=== PATIENT | female | born 1995 | race Caucasian/White ===

== ENCOUNTER → 2017-02-02 | Day surgery (SDC) | payer OTHER ==
[~2017-02-02] VITALS: Ht 152.4 cm; Wt 70.8 kg
[~2017-02-02] MED LIST: ALYACEN 1-35-21 EACH PO
[2017-02-02 09:46] LABS: ABSOLUTE BASOPHIL COUNT 0 /CUMM (0.0-0.2); ABSOLUTE EOSINOPHIL COUNT 0.2 /CUMM (0.0-0.7); ABSOLUTE GRANULOCYTE CT 4.5 /CUMM (1.4-6.5); ABSOLUTE MONOCYTE COUNT 0.2 /CUMM (0.10-0.60); BASOPHIL % 0.5 % (0.0-2.0); EOSINOPHIL % 3.1 % (0-5); GRANULOCYTE % 64.5 % (42.2-75.2); HEMATOCRIT 36.1 % (37-47); MEAN CORPUSCULAR HGB 30.7 PG (27.0-31.0); MEAN CORPUSCULAR HGB CONC 34.5 G/DL (33.0-37.0); MEAN PLATELET VOLUME 9.1 FL (7.4-10.4); PLATELET COUNT 264 /CUMM (130-400); RBC DISTRIBUTION WIDTH 11.8 % (11.5-14.5); RED BLOOD CELL CT 4.06 /CUMM (4.20-5.40)
--- NOTE | 2017-02-02 09:50 | ED GI/GU/ABDOMINAL COMPLAINT ---
History of Present Illness General Chief Complaint: Abdominal Pain/Flank Pain Stated Complaint: RT SIDE ABDOMINAL PAIN Source: patient Exam Limitations: no limitations Vital Signs & Intake/Output Vital Signs & Intake/Output Vital Signs Date Time Temp Pulse Resp B/P B/P Pulse O2 O2 Flow FiO2 Mean Ox Delivery Rate 02/02 1122 98.7 02/02 0910 98.7 81 15 151/74 99 Room Air Room Air Allergies Coded Allergies: No Known Allergies (02/02/17) Reconcile Medications Norethindrone-Ethinyl Estrad (Alyacen 1-35-28 Tablet) 1 MG-35 MCG TABLET 1 TAB PO DAILY ORAL CONTRACEPTIVE (Reported) Triage Note: PT TO ED WITH RLQ PAIN AND PERIUMBILICAL PAIN THAT STARTED TWO DAYS AGO. +VOMIT X 1 TIME TODAY. DIZZINESS THIS MORNING. DIARRHEA YESTERDAY. REPORTS THROBBING PAIN AFTER URINATING. Triage Nurses Notes Reviewed? yes ? N Is pt currently ? No HPI: Patient is a 21-year-old female presents complaining of right lower quadrant abdominal pain. Patient reports pain onset 2 days ago, began periumbilically. This morning pain is now radiating to the right lower quadrant. Pain is a sharp and throbbing pain that comes in waves. Pain is currently moderate to severe. Patient has been taking ibuprofen with no improvement. Decreased appetite and associated nausea. Patient had one episode of vomiting this morning. Last bowel movement was yesterday morning and watery. Urinary frequency. Last menstrual period was approximately 2 weeks ago and normal. Patient denies fevers, chills, dysuria, hematuria. Past History Travel History Traveled to [place] past 21 day No Medical History Any Pertinent Medical History? 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 No Review of Systems Review of Systems Constitutional: Denies: chills, fever. EENTM: Reports: no symptoms. Respiratory: Denies: cough, short of breath. Cardiovascular: Denies: chest pain. GI: Reports: see HPI. Genitourinary: Reports: frequency. Denies: dysuria. Musculoskeletal: Denies: back pain. Skin: Reports: no symptoms. Neurological/Psychological: Reports: no symptoms. Hematologic/Endocrine: Reports: no symptoms. Immunologic/Allergic: Reports: no symptoms. Physical Exam Physical Exam General Appearance: well developed/nourished, alert, awake Head: atraumatic, normal appearance Eyes: Bilateral: normal appearance, PERRL, EOMI. Ears, Nose, Throat, Mouth: hearing grossly normal, moist mucous membrane Neck: normal inspection, supple, full range of motion Respiratory: normal breath sounds, chest non-tender, no respiratory distress, lungs clear Cardiovascular: regular rate/rhythm Gastrointestinal: normal bowel sounds, soft, positive mcburney's point tenderness, positive rovsing's sign Back: normal inspection, normal range of motion, no cva tenderness Extremities: normal range of motion Neurologic/Psych: no motor/sensory deficits, awake, alert, oriented x 3, normal gait, normal mood/affect Skin: intact, normal color, warm/dry Core Measures ACS in differential dx? No Severe Sepsis Present: No Septic Shock Present: No Progress Differential Diagnosis: appendicitis, cholecystitis, diverticulitis, ectopic , endometritis, gastritis, hepatitis, hernia, ischemic bowel, inflamm bowel dis, kidney stone, ovarian cyst, ovarian torsion, perforated viscous, UTI/ pyelo Plan of Care: Orders Procedure Date/time Status Nothing by Mouth 02/02 D Active Patient Data 02/02 1219 Active Code Status 02/02 1219 Active URINE 02/02 09 Complete URINALYSIS 02/02 09 Complete COMPREHENSIVE METABOLIC PANEL 02/02 09 Complete CBC WITHOUT DIFFERENTIAL 02/02 918 Complete VTE Mechanical Prophylaxis 02/02 UNK Active Vital Signs 02/02 UNK Active Intake & Output 02/02 UNK Active Current Medications Sig/Ananda Start time Last Medication Dose Stop Time Status Admin Acetaminophen 1,000 MG Q6P PRN 02/02 1830 UNVr (Ofirmev) N/A 1 UNIT (No Carrier) Heparin Sodium 5,000 UNIT Q8 02/02 1400 UNVr (Porcine) Dextrose/Sodium 1,000 ML Q10H 02/02 1230 UNVr Chloride (D5W-1/2 Normal Saline 1000ML) Morphine Sulfate 4 MG Q3P PRN 02/02 1230 AC (Morphine) Ondansetron HCl 4 MG Q6P PRN 02/02 1230 AC (Zofran) Ampicillin Sodium/ 3,000 MG Q6H 02/02 1215 UNVr Sulbactam Sodium (Unasyn) Sodium Chloride 100 ML (Normal Saline 0.9%) Laboratory Tests 02/02/17 0948: Urinalysis LIGHT H, Urine Color YEL, Urine Clarity HAZY H, Urine pH 6.0, Ur Specific [place] >= 1.030, Urine Protein NEG, Urine Ketones NEG, Urine Nitrite NEG, Urine Bilirubin NEG, Urine Urobilinogen 0.2, Ur Leukocyte Esterase NEG, Ur Microscopic SEDIMENT EXAMINED, Urine RBC 1-3, Urine WBC 1-3 H, Ur Epithelial Cells MANY H, Urine Bacteria MOD H, Urine Mucus FEW, Urine Hemoglobin TRACE- LYSED, Urine Glucose NEG, Urine Test NEGATIVE 02/02/17 0931: Anion Gap 12, Estimated GFR > 60, BUN/Creatinine Ratio 21.4, Glucose 96, Calcium 9.2, Total Bilirubin 0.4, AST 36, ALT 45, Alkaline Phosphatase 73, Total Protein 7.3, Albumin 4.3, Globulin 3.0, Albumin/Globulin Ratio 1.4, CBC w Diff NO MAN DIFF REQ, RBC 4.06 L, MCV 89.0, MCH 30.7, RDW 11.8, MPV 9.1, Gran % 64.5, Lymphocytes % 28.6, Monocytes % 3.3, Eosinophils % 3.1, Basophils % 0.5, Absolute Granulocytes 4.5, Absolute Lymphocytes 2.0, Absolute Monocytes 0.2, Absolute Eosinophils 0.2, Absolute Basophils 0, PUBS MCHC 34.5 Patient declined pain medication on initial exam. 1110: Results discussed with patient. Discussed with Dr. Garcia: have surgical pa come to evaluate patient. 1230: Patient evaluated by surgical physician imaging assistant: Plan for patient to the operating room today for appendectomy. (ANNALISA ROSS,ZEYNEP) Diagnostic Imaging: Viewed by Me: CT Scan. Discussed w/RAD: CT Scan. Radiology Impression: PATIENT: JEREMY RAMIREZ PRESENT AGE: 21 PATIENT ACCOUNT NO: [id number] : 95 LOCATION: [facility] ORDERING PHYSICIAN: ZEYNEP ROSS SERVICE DATE: 02/02/17 EXAM TYPE: CAT - CT ABD & PELVIS W IV CONTRAST EXAMINATION: CT ABDOMEN AND PELVIS WITH CONTRAST CLINICAL INFORMATION: 21-year-old female with periumbilical pain x2 days now radiating to right lower quadrant. Evaluate for appendicitis. COMPARISON: None TECHNIQUE: Multidetector volumetric imaging was performed of the abdomen and pelvis before and after the IV administration of 95 mL of Optiray 320 intravenous contrast. Sagittal and coronal reformatted images were obtained on the technologist's workstation. DLP: 303.22 mGy-cm FINDINGS: LUNG BASES: The visualized lung bases are unremarkable. LIVER, GALLBLADDER, AND BILIARY TREE: The liver is normal in size and shape. Liver demonstrates decreased attenuation suggesting underlying hepatic steatosis. No focal hepatic lesion or biliary ductal dilatation is present. The gallbladder is unremarkable with no evidence of radiopaque gallstones, gallbladder wall thickening, or obvious pericholecystic inflammatory changes. PANCREAS: Unremarkable. SPLEEN: Unremarkable. ADRENAL GLANDS: Unremarkable. KIDNEYS AND URETERS: The kidneys are normal in size, shape, and attenuation. No hydronephrosis, hydroureter, or calculi seen. No perinephric stranding. BLADDER: Decompressed. GASTROINTESTINAL TRACT: There is no bowel obstruction, free intraperitoneal air or fluid. The appendix is mildly prominent measuring 7 mm. No definite periappendiceal inflammatory changes are identified. Moderate stool seen throughout the colon. ABDOMINAL WALL: No significant hernia is appreciated. LYMPH NODES: No mesenteric , retroperitoneal or pelvic lymphadenopathy. VASCULAR: Nonaneurysmal abdominal aorta. Patent portal veins. PELVIC VISCERA: Uterus is retroverted. No adnexal mass. No significant pelvic free fluid. OSSEOUS STRUCTURES: No acute osseous abnormality. IMPRESSION: 1. Appendix is slightly prominent measuring 7 mm, however, no definite periappendiceal inflammatory changes are identified. The findings may represent early appendicitis in the appropriate clinical setting. 2. Probable hepatic steatosis. DICTATED BY: CHRISTIANA MORA DO DATE/TIME DICTATED:02/02/171036 PROCESSING SUPERVISOR:YUMIKO DATE/TIME TRANSCRIBED:1036 CONFIDENTIAL, DO NOT COPY WITHOUT APPROPRIATE AUTHORIZATION. < Electronically signed in Other Vendor System> SIGNED BY: CHRISTIANA MORA DO 02/02/17 1050 Initial ED EKG: none Departure Departure Time of Disposition: 1231 Disposition: STILL A PATIENT Condition: Stable Clinical Impression Primary Impression: Acute appendicitis Qualifiers: Acute appendicitis type: with localized peritonitis Qualified Code: K35.3 - Acute appendicitis with localized peritonitis Referrals: MAL MONTERROSO,NELDA MCCALL (PCP/Family) Departure Forms: Customer Survey General Discharge Information Observation Note Spoke With: GASTON GARCIA MD OR/GI Note Spoke With: GASTON GARCIA MD ED Treatment Decision: JEREMY RAMIREZ requires urgent operative management or an emergent procedure that cannot be performed in the Emergency Room setting. Transport To: [facility]
--- NOTE | 2017-02-02 10:50 | CT SCAN REPORT ---
EXAMINATION: CT ABDOMEN AND PELVIS WITH CONTRAST CLINICAL INFORMATION: 21-year-old female with periumbilical pain x2 days now radiating to right lower quadrant. Evaluate for appendicitis. COMPARISON: None TECHNIQUE: Multidetector volumetric imaging was performed of the abdomen and pelvis before and after the IV administration of 95 mL of Optiray 320 intravenous contrast. Sagittal and coronal reformatted images were obtained on the technologist's workstation. DLP: 303.22 mGy-cm FINDINGS: LUNG BASES: The visualized lung bases are unremarkable. LIVER, GALLBLADDER, AND BILIARY TREE: The liver is normal in size and shape. Liver demonstrates decreased attenuation suggesting underlying hepatic steatosis. No focal hepatic lesion or biliary ductal dilatation is present. The gallbladder is unremarkable with no evidence of radiopaque gallstones, gallbladder wall thickening, or obvious pericholecystic inflammatory changes. PANCREAS: Unremarkable. SPLEEN: Unremarkable. ADRENAL GLANDS: Unremarkable. KIDNEYS AND URETERS: The kidneys are normal in size, shape, and attenuation. No hydronephrosis, hydroureter, or calculi seen. No perinephric stranding. BLADDER: Decompressed. GASTROINTESTINAL TRACT: There is no bowel obstruction, free intraperitoneal air or fluid. The appendix is mildly prominent measuring 7 mm. No definite periappendiceal inflammatory changes are identified. Moderate stool seen throughout the colon. ABDOMINAL WALL: No significant hernia is appreciated. LYMPH NODES: No mesenteric, retroperitoneal or pelvic lymphadenopathy. VASCULAR: Nonaneurysmal abdominal aorta. Patent portal veins. PELVIC VISCERA: Uterus is retroverted. No adnexal mass. No significant pelvic free fluid. OSSEOUS STRUCTURES: No acute osseous abnormality. IMPRESSION: 1. Appendix is slightly prominent measuring 7 mm, however, no definite periappendiceal inflammatory changes are identified. The findings may represent early appendicitis in the appropriate clinical setting. 2. Probable hepatic steatosis.
--- NOTE | 2017-02-02 12:34 | History & Physical Pre-Op ---
General Information and HPI MD Statement: I have seen and personally examined JEREMY RAMIREZ and documented this H&P. The patient is a 21 year old F who presented with a patient stated chief complaint of abdominal pain. Source of Information: patient Exam Limitations: no limitations History of Present Illness: Pt is a 21 yo, otherwise healthy female, who presented to the ED with complaints of acute onset of progressively worsening abdominal pain x 2 days. Pt states that she was in her usual state of good health until 2 days ago, when she started to experience periumbilical, "throbbing" abdominal pain with associated nausea. She reports 2 episodes of diarrhea and decreased appetite as her symptoms progressed with eventual emesis early this morning. Pain is worse with sitting or walking. It decreases during standing or laying flat. She currently rates it 7 out of 10. No relief with Midol taken at home. She reports minimal relief with IV acetaminophen here in the ED. She has a history of a left ovarian cyst, but has never had pain like this before. Last bowel movement was yesterday morning. Last menstrual period was 2 weeks ago. She ate a small meal last night and had water to drink this morning. She denies recent history of unusual food intake or traveling. Also denies fever, chills, sweating, headache , dizziness, chest pain, shortness of breath, palpitations, cough, constipation, hematemesis, hematochezia, dysuria, oliguria. 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 Home Who Do You Live With? parent Smoking Status: Never Smoked ETOH Use: occasional use Illicit Drug Use: denies illicit drug use Employment History Employment: Employed Review of Systems Review of Systems: Positive for abdominal pain, nausea, vomiting, diarrhea, anorexia. Negative for fever, chills, sweating, headache, dizziness, chest pain, shortness of breath, palpitations, cough, constipation, hematemesis, hematochezia, dysuria , oliguria. Exam & Diagnostic Data Last 24 Hrs of Vital Signs/I&O Vital Signs Date Time Temp Pulse Resp B/P B/P Pulse O2 O2 Flow FiO2 Mean Ox Delivery Rate 02/02 1122 98.7 02/02 0910 98.7 81 15 151/74 99 Room Air Room Air Intake & Output 02/02 1600 02/02 0800 02/02 0000 Intake Total Output Total Balance Patient 156 lb Weight Weight Reported by Patient Measurement Method Physical Exam: Gen.: Patient is awake and alert. No acute distress. She was examined in the hallway, which somewhat limited the exam. Cardiac: Regular rate and rhythm. No murmurs appreciated. Pulmonary: Lungs are clear bilaterally. Abdomen: Nondistended. There is tenderness to light palpation in the right lower quadrant over McBurney's point. Positive guarding and rebound tenderness. Positive obturator sign. Negative psoas sign. No masses or abdominal wall defects are appreciated. Hypoactive bowel sounds were heard. Last 24 Hrs of Labs/Lg: Laboratory Tests 02/02/17 0948: Urinalysis LIGHT H, Urine Color YEL, Urine Clarity HAZY H, Urine pH 6.0, Ur Specific [place] >= 1.030, Urine Protein NEG, Urine Ketones NEG, Urine Nitrite NEG, Urine Bilirubin NEG, Urine Urobilinogen 0.2, Ur Leukocyte Esterase NEG, Ur Microscopic SEDIMENT EXAMINED, Urine RBC 1-3, Urine WBC 1-3 H, Ur Epithelial Cells MANY H, Urine Bacteria MOD H, Urine Mucus FEW, Urine Hemoglobin TRACE- LYSED, Urine Glucose NEG, Urine Test NEGATIVE 02/02/17 0931: Anion Gap 12, Estimated GFR > 60, BUN/Creatinine Ratio 21.4, Glucose 96, Calcium 9.2, Total Bilirubin 0.4, AST 36, ALT 45, Alkaline Phosphatase 73, Total Protein 7.3, Albumin 4.3, Globulin 3.0, Albumin/Globulin Ratio 1.4, CBC w Diff NO MAN DIFF REQ, RBC 4.06 L, MCV 89.0, MCH 30.7, RDW 11.8, MPV 9.1, Gran % 64.5, Lymphocytes % 28.6, Monocytes % 3.3, Eosinophils % 3.1, Basophils % 0.5, Absolute Granulocytes 4.5, Absolute Lymphocytes 2.0, Absolute Monocytes 0.2, Absolute Eosinophils 0.2, Absolute Basophils 0, PUBS MCHC 34.5 Diagnostic Data Other Results CT scan of abdomen and pelvis revealed: 1. Appendix is slightly prominent measuring 7 mm, however, no definite periappendiceal inflammatory changes are identified. The findings may represent early appendicitis in the appropriate clinical setting. 2. Probable hepatic steatosis. Assessment/Plan Assessment/Plan: Patient is a 21-year-old female, otherwise healthy, who presents with signs, symptoms, and radiologic evidence of early acute appendicitis. Although the CT scan is not definitive and patient is afebrile with a normal white blood cell count, she otherwise displays a perfect picture clinically for appendicitis. Plan: -Laparoscopic appendectomy is recommended. Patient is in agreement. -Patient will likely be admitted (obs) to the general medical floor (as this does not need to be done emergently since she is stable), under Dr. Garcia's service, while she awaits surgery. -Nothing by mouth, IV fluids. -IV Unasyn every 6 hours. -Morphine or IV Tylenol as needed for pain control. -Zofran as needed for nausea. -Subcutaneous heparin and Alps for DVT prophylaxis. -This was discussed with Dr. Garcia and the patient, all are in agreement. As Ranked By This Provider Problem List: 1. Acute appendicitis
--- NOTE | 2017-02-02 12:34 | Admission Core Measures ---
Admission Lab Results I reviewed the following labs: Laboratory Tests 02/02 02/02 0991 0922 Chemistry Sodium (137 - 145 mmol/L) 140 Potassium (3.5 - 5.1 mmol/L) 4.1 Chloride (98 - 107 mmol/L) 104 Carbon Dioxide (22 - 30 mmol/L) 24 Anion Gap (5 - 16) 12 BUN (7 - 17 mg/dL) 15 Creatinine (0.5 - 1.0 mg/dL) 0.7 Estimated GFR (>60 ml/min) > 60 BUN/Creatinine Ratio (7 - 25 %) 21.4 Glucose (65 - 99 mg/dL) 96 Calcium (8.4 - 10.2 mg/dL) 9.2 Total Bilirubin (0.2 - 1.3 mg/dL) 0.4 AST (14 - 36 U/L) 36 ALT (9 - 52 U/L) 45 Alkaline Phosphatase (<127 U/L) 73 Total Protein (6.3 - 8.2 g/dL) 7.3 Albumin (3.5 - 5.0 g/dL) 4.3 Globulin (1.9 - 4.2 gm/dL) 3.0 Albumin/Globulin Ratio (1.1 - 2.2 %) 1.4 Hematology CBC w Diff NO MAN DIFF REQ WBC (4.8 - 10.8 /CUMM) 7.0 RBC (4.20 - 5.40 /CUMM) 4.06 L Hgb (12.0 - 16.0 G/DL) 12.5 Hct (37 - 47 %) 36.1 L MCV (81.0 - 99.0 FL) 89.0 MCH (27.0 - 31.0 PG) 30.7 RDW (11.5 - 14.5 %) 11.8 Plt Count (130 - 400 /CUMM) 264 MPV (7.4 - 10.4 FL) 9.1 Gran % (42.2 - 75.2 %) 64.5 Lymphocytes % (20.5 - 51.1 %) 28.6 Monocytes % (1.7 - 9.3 %) 3.3 Eosinophils % (0 - 5 %) 3.1 Basophils % (0.0 - 2.0 %) 0.5 Absolute Granulocytes (1.4 - 6.5 /CUMM) 4.5 Absolute Lymphocytes (1.2 - 3.4 /CUMM) 2.0 Absolute Monocytes (0.10 - 0.60 /CUMM) 0.2 Absolute Eosinophils (0.0 - 0.7 /CUMM) 0.2 Absolute Basophils (0.0 - 0.2 /CUMM) 0 PUBS MCHC (33.0 - 37.0 G/DL) 34.5 Urines Urinalysis LIGHT H Urine Color (YEL,AMB,STR) YEL Urine Clarity (CLEAR) HAZY H Urine pH (5.0 - 8.0) 6.0 Ur Specific [place] (1.001 - 1.035) >= 1.030 Urine Protein (NEG,<30 MG/DL) NEG Urine Ketones (NEG) NEG Urine Nitrite (NEG) NEG Urine Bilirubin (NEG) NEG Urine Urobilinogen (0.1 - 1.0 EU/dl) 0.2 Ur Leukocyte Esterase (NEG) NEG Ur Microscopic SEDIMENT EXAMINED Urine RBC (0 - 5 /HPF) 1-3 Urine WBC (0 - 2 /HPF) 1-3 H Ur Epithelial Cells (NONE,FEW) MANY H Urine Bacteria (NEG/NONE) MOD H Urine Mucus (FEW,NONE) FEW Urine Hemoglobin (NEG) TRACE-LYSED Urine Glucose (N MG/DL) NEG Urine Test NEGATIVE Admission Meds I reviewed the following Meds: Current Medications Sig/Ananda Start time Last Medication Dose Stop Time Status Admin Acetaminophen 1,000 MG Q6P PRN 02/02 1830 UNVr (Ofirmev) N/A 1 UNIT (No Carrier) Ampicillin Sodium/ 3,000 MG Q6H 02/02 1215 UNVr Sulbactam Sodium (Unasyn) Sodium Chloride 100 ML (Normal Saline 0.9%) Dextrose/Sodium 1,000 ML Q10H 02/02 1230 UNVr Chloride (D5W-1/2 Normal Saline 1000ML) Heparin Sodium 5,000 UNIT Q8 02/02 1400 UNVr (Porcine) Morphine Sulfate 4 MG Q3P PRN 02/02 1230 AC (Morphine) Ondansetron HCl 4 MG Q6P PRN 02/02 1230 AC (Zofran) Acute Coronary Syndrome Inclusion Criteria ACS Diagnosis No Inpatient Core Measures LDL Reminder: If No, please order W/I first 24hr of stay Congestive Heart Failure Inclusion Criteria CHF Diagnosis No Cerebrovascular accident Inclusion Criteria CVA/TIA Diagnosis No Inpatient Core Measures Bedside Swallow Eval Reminder: If BSE failed, place ST order Antithrombotic Reminder: Order Antithrombotic Medication by end of day 2 Antithrombotic Reminder: Document Reason Antithrombotic Not ordered by end of day 2 AFIB/Flutter Reminder: If Present, add to problem list AFIB/Flutter Reminder: Order Anticoag Medication for pts with AFIB/Flutter Atherosclerosis Reminder: If Present, add to problem list LDL Reminder: If No, please order W/I first 24hr of stay PT Order Reminder: If No, please order Venous thromboembolism Inpatient Core Measures VTE Risk Factors: Acute medical illness, [facility] prophylaxis d/t No contraindications No VTE Pharm Prophylaxis d/t No contraindications Inclusion Criteria - Per Current guidelines, there needs to be overlap - treatment for the first 5 days of Warfarin therapy. - Parenteral Anticoagulation (IV or SC) needs to be - given along with Warfarin therapy. VTE Diagnosis No VTE Type NONE VTE Confirmed by (Test) NONE Problem List As ranked by this Provider includes Assessment & Plan 1. Acute appendicitis HOME MEDS Home Med List Norethindrone-Ethinyl Estrad (Alyacen 1-35-28 Tablet) 1 MG-35 MCG TABLET 1 TAB PO DAILY ORAL CONTRACEPTIVE (Reported)
[2017-02-02 14:12] VITALS: BP 122/73
--- NOTE | 2017-02-16 16:16 | Operative Report ---
Operative/Inv Procedure Report Surgery Date: 02/02/17 Name of Procedure: Appendectomy, Laparoscopic Pre-Operative Diagnosis: acute appendicitis Post-Operative Diagnosis: same Estimated Blood Loss: less than 10cc Surgeon/Lmsw: José Miguel Garcia MD Anesthesia: general endotracheal tube IV Fluids: LR Specimens: Appendix Complications: none Condition: stable Operative Indication: see admission H and P Operative/Procedure Note Note: After informed consent and proper identification patient was taken the operating room and placed on the operating table in supine position. Venodyne stockings were applied. She underwent a general endotracheal anesthetic. The abdomen was prepped and draped in normal sterile fashion. An infraumbilical incision was made and with an #11 blade after anesthetizing the skin and subcutaneous tissue with half percent Marcaine. The fascia was elevated between 2-0 Vicryl sutures and opened transversely with electrocautery. Upon port cannula was inserted into the abdominal cavity and the abdomen insufflated with CO2. 2 additional 5 mm trochars were placed in the left lower quadrant. We visualized the appendix coming off the cecum and the right lower quadrant. We elevated the mesial appendix and divided the mesoappendix using a ultrasonic scalpel. We stapled across the base of the appendix with a Endo ALYSSIA stapler vascular load. We placed the appendix in the Endo Catch bag. Inspected the right upper and right lower quadrant there is no other abnormal pathology. Removed the appendix through the infraumbilical port in the Endo Catch bag were removed all CO2 and trochars we closed the fascia with 0 Vicryl suture we closed the skin incisions with 4-0 Monocryl subcuticular stitches Steri-Strips and dry sterile dressings were placed. The patient tolerated the procedure without complications and was taken the recovery room in stable condition Findings: acute appendicitis, not perforated Discharge Disposition: PACU
== END ==
LOC: ERH 09:02 → ER-OR 09:15 → ERH 09:15 → STS 15:47 → ER-OR 17:29
PROVIDERS: Emergency Medicine
DX: K35.80 Unspecified acute appendicitis (principal)
CPT/HCPCS: 74177; 81001; 81025; 88304; 96361; 96374; 96375; J0131; J1170; J1630; J1644; J2175; J2250; J2405; J3010; J7042